=== PATIENT | female | born 1985 | race Caucasian/White ===

== ENCOUNTER 2024-02-22 10:46 | Outpatient (CLI) | payer BC, SELFPAY | END 2024-02-22 10:47 | disposition home or self-care (01) | PROVIDERS: PCP Physician Assistant Medical; Visit Provider Physician Assistant Medical | DX: Z13.220 Encounter for screening for lipoid disorders (principal); Z13.228 Encounter for screening for other metabolic disorders; Z13.29 Encounter for screening for other suspected endocrine disorder; Z11.59 Encounter for screening for other viral diseases | CPT/HCPCS: 80053; 80061; 84443; 86703; 86803 ==

== ENCOUNTER 2024-11-22 10:05 | Outpatient (CLI) | payer BC, SELFPAY | END 2024-11-22 10:06 | disposition home or self-care (01) | PROVIDERS: PCP Physician Assistant Medical; Visit Provider Physician Assistant Medical | DX: Z90.3 Acquired absence of stomach [part of] (principal) | CPT/HCPCS: 80053; 82306; 82607; 82728; 82746; 84439; 84443; 86376 ==

== ENCOUNTER 2025-01-27 06:12 | Inpatient (IN) | payer BC, OTHER, SELFPAY ==
[2025-01-27] VITALS (17 sets, daily range): BP systolic 107–147; BP diastolic 64–99; PULSE 61–83; RESP 16–18; TEMP 36.7–36.9; O2SAT 90–100; BMI 32.2; BMI 32.1
--- NOTE | 2025-01-27 06:55 | CRLHL7_ITS ---
For Patients: As a result of the Century Cures Act, medical imaging exams and procedure reports are released immediately into your electronic medical record. You may view this report before your referring provider. If you have questions, please contact your health care provider. INDICATION: Right upper quadrant abdomen pain. TECHNIQUE: Ultrasound abdomen limited. Sonographic images of the right upper quadrant were obtained using estrada-scale and color Doppler images. COMPARISON: None. FINDINGS: Liver: Normal in size and echotexture. No suspicious masses. No intrahepatic biliary dilatation. Hepatopetal flow of main portal vein with maintained respiratory phasic variation.. Gallbladder: Cholelithiasis. Mild pericholecystic fluid and borderline edematous wall thickening of the gallbladder measuring 4 mm. CBD measures 4 millimeter. Positive Leblanc`s sign. Pancreas: Partially imaged secondary to bowel gas. Included pancreatic head and body show normal echotexture without ductal dilatation. Vasculature: Patent IVC. Included proximal abdominal aorta is of normal caliber. Right kidney measures 10.5 x 45.4 cm. No hydronephrosis. IMPRESSION: Cholelithiasis with findings concerning for acute cholecystitis. Dictated by Sean Cardenas MD @ 01/27/2025 9:01:27 AM (Electronically Signed)
--- NOTE | 2025-01-27 07:00 | ED_ITS ---
HPI - General Adult General Chief complaint: Chest Pain Stated complaint: abdominal pain Time Seen by Provider: 01/27/25 06:16 Source: patient Mode of arrival: ambulatory Limitations: no limitations History of Present Illness HPI narrative: Friendly 39-year-old female presents to the emergency department with right upper quadrant pain that sleep has been going on intermittently for the past 3 months but became severe for the past day and a half. Initially would have intermittent symptoms typically triggered postprandially that would be accompanied by nausea and vomiting and right upper quadrant pain would be self limited, lasting no more than a couple of hours and never company by fever or radiation. Unfortunately for the past 36 hours she has had persistent achy pain that becomes sharp intermittently in the right upper quadrant area that radiates into the right posterior shoulder blade area. No shortness of breath. Pain is located underneath the right rib margin. Patient has had weight loss since a gastric sleeve surgery in June of this year. Drinks 2-3 alcoholic beverages per week on average, but has not had any this week. No history of pancreatitis. No history of DVT or PE. Not anticoagulated. No fever. No bloody stools. Bowels are moving normally. Has been unable to hold down any food for the past 24 hours due to nausea and is now fairly tolerant of even a couple of sips of liquid. No dysuria. Past medical history notable for history of anxiety. Home meds are bupropion, Lexapro. She has an IUD for contraception. Prior abdominal surgical history includes a almost 4 years ago, gastric sleeve surgery in June. Allergy to hydrocodone. ROS is notable for the GI and musculoskeletal symptoms as above, otherwise denies times 12 systems. Related Data Home Medications ?Medication ?Instructions ?Recorded ?Confirmed fluticasone propionate 50 1 spray intranasal QDAY PRN 02/22/24 01/27/25 mcg/actuation nasal spray,suspension (Flonase Allergy Relief) escitalopram oxalate 10 mg tablet 10 mg PO QDAY 01/27/25 valacyclovir 500 mg tablet 500 mg PO BID PRN 01/27/25 01/27/25 (Valtrex) Previous Rx's ?Medication ?Instructions ?Recorded cetirizine 10 mg capsule (All Day 10 mg PO QDAY PRN al lergy symptoms 02/22/24 Allergy (cetirizine)) #90 caps bupropion HCl 100 mg tablet,12 hr 100 mg PO QAM #90 ta bs 11/22/24 sustained-release (Wellbutrin SR) oxycodone-acetaminophen 5 mg-325 1 tab PO Q6H PRN pain #25 tabs 01/28/25 mg tablet Allergies Allergy/AdvReac Type Severity Reaction Status Date / Time hydrocodone Allergy Intermediate Itching Verified 01/24/25 09:03 PFSH PFSH Medical History (Updated 01/28/25 @ 15:16 by Keren Howard MD) IUD (intrauterine device) in place ?Z97.5 - Presence of (intrauterine) contraceptive device (ICD-10) Low libido ?R68.82 - Decreased libido (ICD-10) Unspecified asthma ?J45.909 - Unspecified asthma, uncomplicated (ICD-10) Hypertension during ?O16.9 - Unspecified maternal hypertension, unspecified trimester (ICD-10) Surgical History (Updated 01/27/25 @ 16:10 by Keren Howard MD) H/O gastric sleeve (~06/2024) ?Z90.3 - Acquired absence of stomach [part of] (ICD-10) Hx of tonsillectomy ?Z90.89 - Acquired absence of other organs (ICD-10) Hx of dilation and curettage ?Z98.890 - Other specified postprocedural states (ICD-10) Hx of section ?Z98.891 - History of uterine scar from previous surgery (ICD-10) Family History (Updated 01/28/25 @ 11:38 by Lucy Adler MD) Mother High blood pressure High cholesterol Thyroid disease Father Depression High blood pressure High cholesterol Maternal Grandfather Diabetes Cardiovascular disease Colon cancer Paternal Grandmother Lung cancer Paternal Grandfather Cancer COPD (chronic obstructive pulmonary disease) Son Seizure disorder Social History (Updated 01/28/25 @ 11:38 by Lucy Adler MD) Narrative: ( Mateusz). ( 13 yo - [place], 10yo- [place], 6yo- [place] ( fostering to adopt), 3 yo- [place]) She does not work outside the home currently. Alcohol- 2-3 drinks per week Never smoker Activity- walks 2-3 times per week. What is your current living situation?: I presently have a place to live Problems where you live: no known problems In the past 12 months, utilities in danger of being shut off: no In past 12 months, lack of transportation kept you from medical appts, meetings, work, or getting things needed for daily living: no In the past 12 mos, have been you worried that your food would run out before you had money to buy more?: never true In the past 12 mos, the food you bought just didn't last and you didn't have money to buy more?: never true Smoking Status: Never smoker Do you use any of these nicotine containing products: None Second hand tobacco smoke exposure: No How many standard drinks containing alcohol do you have on a typical day: 1 or 2 AUDIT-C Alcohol total score: 0 Non-prescribed substance use: denies use How often does anyone, including family, friends and others, physically hurt you : never How often does anyone, including family, friends and others, insult or talk down to you: never How often does anyone, including family, friends and others, threaten you with harm: never How often does anyone, including family, friends and others, scream or curse at you: never service: No Exam Const: Vital Signs, click to edit/add: Vital Signs - 24 hr 01/27/25 06:23 01/27/25 07:30 Temperature 98.4 F Pulse Rate 74 Pulse Rate [Right Pulse Oximeter] 83 Respiratory Rate 16 16 Blood Pressure [Ri ght Upper Arm] 147/99 H Pulse Oximetry 100 100 Oxygen Delivery Me thod Room Air Documenting provider has reviewed patient's vital signs: yes Common normals: no apparent distress and alert General appearance: cooperative and well kempt Other: Appears uncomfortable but stoic and quite funny. HENMT: Common normals: moist oral mucous membranes and oropharynx normal Head and scalp: normal to inspection Face and sinus: normal facial exam Mouth: oral and palatal mucosa normal Eye: Common normals: conjunctivae normal General eye: normal appearance of both eyes Conjunctiva: conjunctiva(e) normal Neck & C-Spine: Common normals: full ROM and no lymphadenopathy General: normal visual inspection Resp: Common normals: normal respiratory effort, no use of accessory muscles and clear to auscultation bilaterally Effort & inspection: able to speak in complete sentences Auscultation: clear to auscultation bilaterally Cardio: Common normals: regular rate, regular rhythm, S1 normal heart sound, S2 normal heart sound and no murmurs Rate: regular rate Rhythm: regular rhythm Heart sounds: S1 normal and S2 normal GI: Common normals: Normal to inspection, nondistended, normoactive bowel sounds present, soft to palpation and no hepatosplenomegaly Palpation: soft and no hepatosplenomegaly Other: Positive Leblanc sign with right upper quadrant tenderness. No guarding or rebound tenderness. Back & Pelvis: Common normals: thoracic and lumbar spine normal to inspection Extremity: Common normals: normal to inspection and no pedal edema Neuro: Common normals: moves all extremities Sensorium/orientation: alert Speech: speech normal Psych: Appearance: well kempt Attitude: engaged Activity/motor behavior: appropriate eye contact Insight: insight good Judgement: judgment good Skin: Common normals: no rashes or lesions noted General skin exam: no rashes or lesions noted Course Course ED Course: 39-year-old female with recurrent episodes of right upper quadrant abdominal pain now with constant abdominal pain for the past day and half with nausea, food intolerance and now radiation to the right shoulder suggestive of diaphragmatic irritation. Differential diagnosis size for acute cholecystitis but also suspicious for choledocholithiasis, biliary dyskinesia, colitis, gastritis, complications from her gastric sleeve surgery, atypical pneumonia, musculoskeletal etiology, amongst others. Will place peripheral IV, obtain typical intra-abdominal and cardiac labs, EKG. Give 4 of Zofran, half of Dilaudid and 1 L of LR. Good to move straight to a right upper quadrant ultrasound rather than a CT due to the positive Leblanc sign on exam but if this does not reveal expected findings, consider CT next. She does have an IUD so I will obtain a serum HCG just to confirm no . Reevaluation(s) Time of Reevaluation #1: 08:57 Reevaluation #1: As suspected, ultrasound did show cholecystic fluid, gallbladder wall thickening and stones. I did speak with Dr. Acosta and let her know this and we were anticipating going to surgery but are lipase came back elevated unexpectedly. With this information, she will need to be admitted to the medical floor for management of the pancreatitis. Will plan to repeat the lipase levels and if going down, she could still have cholecystectomy tomorrow. Dr. Acosta and Dr. Howard to sort out the decision on whether or not she should do antibiotics. Will need MRCP in the morning. This will these in decision making for proceeding with surgery versus transfer for ERCP. Management of pancreatitis in the interim. Discussed with patient. P.r.n. Dilaudid ordered, clear liquid diet, maintenance fluids. Will admit to medical floor for inpatient management Vital Signs Vital signs: Initial Vital Signs Respiratory Effort Normal, Spontaneous, Non-Labored 01/27/25 06:16 Respiratory Depth Normal 01/27/25 06:16 Respiratory Pattern Normal 01/27/25 06:16 Vital Signs Temperature 98.4 F 01/27/25 06:23 Pulse Rate 83 01/27/25 06:23 Respiratory Rate 16 01/27/25 06:23 Blood Pressure 147/99 H 01/27/25 06:23 Pulse Oximetry 100 01/27/25 06:23 Oxygen Delivery Method Room Air 01/27/25 06:23 Temperature 99.2 F 01/28/25 17:00 Pulse Rate 81 01/28/25 17:00 Respiratory Rate 14 01/28/25 17:00 Blood Pressure 113/82 01/28/25 17:00 Pulse Oximetry 99 01/28/25 17:00 Oxygen Delivery Method Room Air 01/28/25 17:00 Medications Administered Medications: Discontinued Medications Generic Name Dose Route Start Last Admin Trade Name Freq PRN Reason Stop Dose Admin Acetaminophen 1,000 mg 01/27/25 12:19 01/28/25 10:05 Acetaminophen 500 Mg Tablet PO 1,000 mg Q6H PRN Administration Bupivacaine HCl 30 ml 01/28/25 13:32 01/28/25 12:15 Bupivacaine 0.25% 30 Ml INJECTION 01/28/25 13:33 15 ml ONCE ONE Administration Cefazolin Sodium 0 gm 01/28/25 11:09 01/28/25 11:44 Cefazolin 1 Gm Inj IVP 01/28/25 11:10 1 gm ONCE ONE Administration Enoxaparin Sodium 40 mg 01/27/25 21:00 01/27/25 20:38 Enoxaparin 40 Mg/0.4 Ml Inj SUBCUT 40 mg HS ANA MARIA Administration Hydromorphone HCl 0.5 mg 01/27/25 06:55 01/27/25 07:26 Hydromorphone 0.5 Mg/0.5 Ml Inj IVP 01/27/25 06:56 0.5 mg ONCE ONE Administration Hydromorphone HCl 0.5 mg 01/27/25 08:03 01/27/25 15:26 Hydromorphone 0.5 Mg/0.5 Ml Inj IVP 0.5 mg Q1H PRN Administration Hydromorphone HCl 0.5 mg 01/28/25 13:05 01/28/25 13:55 Hydromorphone 0.5 Mg/0.5 Ml Inj IVP 0.5 mg Q10M PRN Administration Pain Hydroxyzine Pamoate 25 mg 01/27/25 11:20 01/28/25 08:31 Hydroxyzine Pamoate 25 Mg Capsule PO 25 mg Q4H PRN Administration Hydroxyzine Pamoate 25 mg 01/28/25 13:05 01/28/25 16:08 Hydroxyzine Pamoate 25 Mg Capsule PO 01/28/25 13:06 Not Given ONCE ONE Lactated Ringer's 1,000 mls @ 1,000 mls/hr 01/27/25 06:55 01/27/25 08:33 Lactated Ringers 1000 Ml IV 01/27/25 07:54 Infused .Q1H ONE Infusion Lactated Ringer's 1,000 mls @ 125 mls/hr 01/27/25 08:05 01/28/25 16:09 Lactated Ringers 1000 Ml IV Infused .Q8H ANA MARIA Infusion Lactated Ringer's 1,000 mls @ 125 mls/hr 01/28/25 14:34 01/28/25 14:37 Lactated Ringers 1000 Ml IV 125 mls/hr .Q8H ANA MARIA Administration Iopamidol 50 ml 01/28/25 13:32 01/28/25 12:40 Iopamidol 50 Ml Vial INJECTION 01/28/25 13:33 50 ml ONCE ONE Administration Melatonin 6 mg 01/27/25 11:20 01/27/25 20:39 Melatonin 3 Mg Tablet PO 6 mg HS PRN Administration Ondansetron HCl 4 mg 01/27/25 06:55 01/27/25 07:26 Ondansetron 2 Mg/Ml Inj IVP 01/27/25 06:56 4 mg ONCE ONE Administration Ondansetron HCl 4 mg 01/27/25 08:03 01/28/25 08:42 Ondansetron 2 Mg/Ml Inj IVP 4 mg Q4H PRN Administration Nausea Ondansetron HCl 4 mg 01/28/25 13:05 01/28/25 13:35 Ondansetron 2 Mg/Ml Inj IVP 4 mg ONCE PRN Administration Nausea Oxycodone HCl 5 mg 01/27/25 16:12 01/28/25 18:23 Oxycodone 5 Mg Tablet PO 5 mg Q4H PRN Administration Pain Pantoprazole Sodium 40 mg 01/27/25 11:20 01/27/25 12:36 Pantoprazole Sodium 40 Mg Inj IVP 01/27/25 11:21 40 mg ONCE ONE Administration Prochlorperazine 5 mg 01/28/25 13:05 01/28/25 13:58 Prochlorperazine 5 Mg/Ml Vial IVP 01/28/25 13:06 5 mg ONCE ONE Administration Sodium Chloride 5 ml 01/27/25 21:00 01/28/25 08:43 Sodium Chloride 0.9 % (Flush) 10 Ml Syringe IVF 5 ml BID ANA MARIA Administration Sodium Chloride 20 ml 01/28/25 13:32 01/28/25 12:40 0.9 % Sodium Chl 20 Ml Vial INJECTION 01/28/25 13:33 20 ml ONCE ONE Administration Sodium Chloride 50 ml 01/28/25 13:32 01/28/25 12:40 0.9% Sodium Chl 50 Ml Vial INJECTION 01/28/25 13:33 50 ml ONCE ONE Administration Medical Decision Making Lab Data Lab results reviewed: Yes I reviewed the patient's lab results Lab results narrative: No significant leukocytosis. Lipase is unexpectedly elevated, test is negative. Urinalysis reassuring. Troponin and cardiac workup reassuring. Labs: Lab Results 01/27/25 Range/Units 07:15 WBC 5.12 (4.50-11.00) K/uL RBC 4.29 (4.00-5.20) m/uL Hgb 13.6 (12.0-16.0) gm/dL Hct 41.3 (33.0-51.0) % MCV 96 (80-100) fL MCH 32 (26-34) pg MCHC 33 (32-36) gm/dL RDW Coeff of Mireille 12.7 (11.5-15.5) % Plt Count 192 (140-440) K/uL Neut % (Auto) 66.4 (42.0-72.0) % Lymph % (Auto) 22.1 (20-44) % [place] % (Auto) 9.0 (0.0-11.0) % Eos % (Auto) 2.1 (0.0-7.0) % Baso % (Auto) 0.4 (0.0-3.0) % Neut # (Auto) 3.40 (1.7-7.0) K/uL Lymph # (Auto) 1.13 (0.90-2.90) K/uL [place] # (Auto) 0.50 (0.00-0.90) K/UL Eos # (Auto) 0.11 (0.00-0.50) K/uL Baso # (Auto) 0.02 (0.00-0.30) K/uL Abs Immat Gran (auto) 0.00 (0.00-0.30) K/uL Imm/Tot Granulo (auto) 0.0 % Sodium 138 (135-149) mmol/L Potassium 4.0 (3.6-5.1) mmol/L Chloride 104 (96-114) mmol/L Carbon Dioxide 29 (20-32) mmol/L Anion Gap 5 L (7-15) mEq/L BUN 14 (5-24) mg/dL Creatinine 0.7 (0.5-1.5) mg/dL Estimated Creat Clear 79.04 Estimated GFR 114 ml/min Glucose 99 (60-115) mg/dL Calcium 9.2 (8.4-10.6) mg/dL Total Bilirubin 0.9 (0.1-1.5) mg/dL AST 184 H (12-35) U/L ALT 161 H (4-35) U/L Alkaline Phosphatase 90 (40-150) U/L C-Reactive Protein 1.0 (0.5-1.0) mg/dL Total Protein 7.2 (6.0-8.3) g/dL Albumin 4.1 (3.3-5.0) g/dL Lipase 32970 H (23-300) U/L HCG, Quant < 2.39 mIU/mL POC Troponin I 0.00 L (0.01-0.04) ng/ml Imaging Data Abdominal ultrasound: Attestation: I have reviewed the pertinent imaging results. My impression: Pericholecystic fluid, gallbladder wall thickening, lots of stones. Common bile duct not dilated. Suspicious for acute cholecystitis Radiologist's impression: Tech impression reviewed with same findings. ECG Data Attestation: I personally reviewed and interpreted this ECG as follows: Prior ECG tracings: not available for review Interpretation: Sinus rhythm with a rate of 69. No significant ST or T-wave abnormalities. Normal intervals and axis. Normal EKG Discharge Plan Discharge Clinical Impression: Acute gallstone pancreatitis, Acute calculous cholecystitis Patient Disposition: Admitted As Inpatient Condition: Stable Activity Level: Activity as Tolerated and No strenuous activity Activity Detail: No lifting more than 20 lb for 2 weeks Discharge Diet: Regular
[2025-01-27 07:24] LABS: Hematocrit 41.3 % (33.0-51.0); Hemoglobin* 13.6 gm/dL (12.0-16.0); Immature Granulocytes Abs Auto 0.00 K/uL (0.00-0.30); Immature Granulocytes Pct Auto 0.0 %; Lymphocytes Absolute Auto 1.13 K/uL (0.90-2.90); Mean Corpuscular HGB Conc 33 gm/dL (32-36); Mean Corpuscular Hemoglobin 32 pg (26-34); Mean Corpuscular Volume 96 fL (80-100); RDW Coefficient of Variation % 12.7 % (11.5-15.5); Red Blood Count 4.29 m/uL (4.00-5.20); White Blood Count* 5.12 K/uL (4.50-11.00)
[2025-01-27] MEDS: LACTATED RINGERS 1000 ML 1,000 ML IV (07:26)
[2025-01-27] MEDS: ONDANSETRON 2 MG/ML inj 4 MG IVP ×2 (07:26→10:52)
[2025-01-27 07:39] LABS: Slide Review Reflex No
[2025-01-27 07:41] LABS: Albumin* 4.1 g/dL (3.3-5.0); Troponin, Point-of-Care* 0.00 ng/ml (0.01-0.04)
[2025-01-27 07:42] LABS: Chloride* 104 mmol/L (96-114); Potassium* 4.0 mmol/L (3.6-5.1); Sodium* 138 mmol/L (135-149)
[2025-01-27 07:44] LABS: Alanine Aminotransferase* 161 U/L (4-35); Alkaline Phosphatase* 90 U/L (40-150); Anion Gap 5 mEq/L (7-15); Aspartate Amino Transferase* 184 U/L (12-35); Bilirubin Total* 0.9 mg/dL (0.1-1.5); Blood Urea Nitrogen* 14 mg/dL (5-24); Carbon Dioxide* 29 mmol/L (20-32); Creatinine* 0.7 mg/dL (0.5-1.5); Est. Creatinine Clearance* 79.04; Estimated Glomerular Filt Rate 114 ml/min
[2025-01-27 07:45] LABS: Calcium* 9.2 mg/dL (8.4-10.6); Glucose* 99 mg/dL (60-115); Total Protein* 7.2 g/dL (6.0-8.3)
[2025-01-27 08:06] LABS: HCG Quantitative* < 2.39 mIU/mL
[2025-01-27] MEDS: LACTATED RINGERS 1000 ML 1,000 ML 125 ML IV ×2 (08:33→16:38)
[2025-01-27 08:44] LABS: Appearance Urine Clear (Clear)
[2025-01-27] MEDS: PANTOPRAZOLE SODIUM 40 MG INJ IVP (12:36)
[2025-01-27] MEDS: ACETAMINOPHEN 500 MG TABLET 1000 MG PO (12:37)
--- NOTE | 2025-01-27 12:53 | P.IMHP_ITS ---
Assessment and Plan Assessment and plan (1) Acute gallstone pancreatitis: Problem comment: -analgesics and antiemetics -IV fluids -clear liquid only -trend labs -based on lab findings tomorrow we can consider ERCP or direct to OR for lap cholecystectomy Status: Acute (2) H/O gastric sleeve: Problem comment: [facility] Jun 2024 Status: Acute (3) Obesity: Problem comment: In [id number] 216 lb [id number] sleeve surgery 11/22/2024-170 lb Status: Acute (4) Environmental allergies: Status: Acute (5) Anxiety: Problem comment: 02/22/2024-start Lexapro 10 mg daily 05/16/2024- increase Lexapro to 15 mg daily 11/22/2024-reduce Lexapro to 10 mg daily, add Wellbutrin 100 mg SR daily 02/04 - has weaned herself off all meds Status: Acute Hospitalist- H&P: HPI History of Present Illness Date Seen: 01/27/25 Chief complaint: abdominal pain Narrative: ADMISSION HISTORY AND PHYSICAL - HOSPITALIST Chief Complaint: Acute on chronic abdominal pain; gallstone pancreatitis HPI: This is a 39-year-old, mother of 4, who had a gastric sleeve procedure done approximately 8 months ago. In the last 3 months she started experiencing intermittent sharp abdominal pain in the upper right quadrant. she has lost over 60lbs since surgery. In the last 3 days the pain has been more consistent and chronic. When she woke up this morning she thought the pain was even worse and she felt like she could not eat or work through this pain. She presented to the emergency room. ER COURSE: Her vital signs were all stable. Her right upper quadrant ultrasound showed cholelithiasis with findings consistent with acute cholecystitis. This includes. Cholestatic fluid, wall thickening, common bile duct measuring 4 mm. Her labs showed a normal CBC, normal chemistries, however her AST and ALT were markedly elevated from earlier this summer. However her total bilirubin was normal. Her lipase was 15,159. CODE STATUS: FULL CODE PCP: Balwinder Son PA-C EMERGENCY CONTACT PLAN: , Mateusz mother, Altagracia I've updated the PFSH, medications and allergies in the Expanse tabs. INVESTIGATIONS: LABS/MICRO/ECG/IMAGING as above REVIEW OF SYSTEMS: 12-point ROS completed with patient and negative unless otherwise stated in HPI or below. PHYSICAL EXAM: CONSTITUTIONAL: Conversive, good historian. A/O. Knows setting and context. GENERAL: Well-developed and above ideal body weight, in no respiratory distress. VITAL SIGNS: see record. HEENT: Sclerae are anicteric. No petechiae. CARDIAC: rhythm is regular. There is no S3 or rub. No harsh murmurs. Extremities show trace edema with symmetrical pulses. PULM: good air entry with no wheeze. NEURO: Speech is fluent. A brief neurologic exam is negative. ABDOMEN: soft; tender to the mid epigastrum SKIN: No rashes, petechiae, concerning changes PSYCHIATRIC: Euthymic. ADMIT TO MEDSURG: FLOOR CARE DVT: Lovenox GI: PO intake Time spent: Today I spent 75 minutes seeing the patient, discussing the patient with ER staff, reviewing Expanse and EPIC notes/diagnostics, discussing the care plan with our care time that includes social work, PT/OT, pharmacy, RT, fci and documenting my impressions and plan in the medical record. MEDICAL NECESSITY FOR HOSPITALIZATION Anticipated midnights in the hospital: 2 Admitting diagnosis: gallstone pancreatitis Risk of morbidity and mortality: moderate Acuity is characterized as high and reflected in: recent bariatric surgery; potential for choledocholithiasis or worsening pancreatitis This patient will require hospital services as outlined in the assessment and plan in order to stabilize and be safely discharged to a lower level of care. Because of the risk and acuity as described above, this patient cannot be managed at a lower level of care. LENGTH OF STAY: 2 IP ? Anticipated LOS>2 midnights due to acuity of clinical presentation requiring inpatient level of care Medical Decision Making Medical Decision Making Has patient completed a Health Care Directive: No PFSH PFSH Medical History (Updated 01/27/25 @ 16:10 by Keren Howard MD) IUD (intrauterine device) in place ?Z97.5 - Presence of (intrauterine) contraceptive device (ICD-10) Low libido ?R68.82 - Decreased libido (ICD-10) Unspecified asthma ?J45.909 - Unspecified asthma, uncomplicated (ICD-10) Hypertension during ?O16.9 - Unspecified maternal hypertension, unspecified trimester (ICD-10) Surgical History (Updated 01/27/25 @ 16:10 by Keren Howard MD) H/O gastric sleeve (~06/2024) ?Z90.3 - Acquired absence of stomach [part of] (ICD-10) Hx of tonsillectomy ?Z90.89 - Acquired absence of other organs (ICD-10) Hx of dilation and curettage ?Z98.890 - Other specified postprocedural states (ICD-10) Hx of section ?Z98.891 - History of uterine scar from previous surgery (ICD-10) Family History Mother High blood pressure High cholesterol Thyroid disease Father Depression High blood pressure High cholesterol Maternal Grandfather Diabetes Cardiovascular disease Colon cancer Paternal Grandmother Lung cancer Paternal Grandfather Cancer COPD (chronic obstructive pulmonary disease) Son Seizure disorder Social History Narrative: ( Mateusz). ( 13 yo - AJ, 10yo- Funk, 6yo- Joziah ( fostering to adopt), 3 yo- Von) Work: insurance- finances Alcohol- 2-3 drinks per week Never smoker Activity- walks 2-3 times per week. What is your current living situation?: I presently have a place to live Problems where you live: no known problems In the past 12 months, utilities in danger of being shut off: no In past 12 months, lack of transportation kept you from medical appts, meetings, work, or getting things needed for daily living: no In the past 12 mos, have been you worried that your food would run out before you had money to buy more?: never true In the past 12 mos, the food you bought just didn't last and you didn't have money to buy more?: never true Smoking Status: Never smoker Do you use any of these nicotine containing products: None Second hand tobacco smoke exposure: No How many standard drinks containing alcohol do you have on a typical day: 1 or 2 AUDIT-C Alcohol total score: 0 Non-prescribed substance use: denies use How often does anyone, including family, friends and others, physically hurt you : never How often does anyone, including family, friends and others, insult or talk down to you: never How often does anyone, including family, friends and others, threaten you with harm: never How often does anyone, including family, friends and others, scream or curse at you: never service: No Meds Home Medications and Allergies Home Medications ?Medication ?Instructions ?Recorded ?Confirmed ?Type cetirizine 10 mg capsule (All Day 10 mg PO QDAY PRN al lergy symptoms 02/22/24 01/27/25 Rx Allergy (cetirizine)) #90 caps fluticasone propionate 50 1 spray intranasal QDAY PRN 02/22/24 01/27/25 History mcg/actuation nasal spray,suspension (Flonase Allergy Relief) bupropion HCl 100 mg tablet,12 hr 100 mg PO QAM #90 ta bs 11/22/24 01/27/25 Rx sustained-release (Wellbutrin SR) escitalopram oxalate 10 mg tablet 10 mg PO QDAY 01/27/25 History valacyclovir 500 mg tablet 500 mg PO BID PRN 01/27/25 01/27/25 History (Valtrex) Allergies Allergy/AdvReac Type Severity Reaction Status Date / Time hydrocodone Allergy Intermediate Itching Verified 01/24/25 09:03 Exam Const: Vital Signs, click to edit/add: Vital Signs - 24 hr 01/27/25 06:23 01/27/25 07:30 01/27/25 08:03 Temperature 98.4 F Pulse Rate 74 76 Pulse Rate [Right Pulse Oximeter] 83 Respiratory Rate 16 16 Blood Pressure Blood Pressure [Ri ght Upper Arm] 147/99 H Pulse Oximetry 100 100 [facility] 01/27/25 08:15 01/27/25 08:30 01/27/25 08:34 Temperature Pulse Rate 64 61 62 Pulse Rate [Right Pulse Oximeter] Respiratory Rate Blood Pressure 122/80 Blood Pressure [Ri ght Upper Arm] Pulse Oximetry 99 99 99 Oxygen Delivery Oh thod 01/27/25 08:45 01/27/25 09:01 01/27/25 09:02 Temperature Pulse Rate 75 70 74 Pulse Rate [Right Pulse Oximeter] Respiratory Rate Blood Pressure 118/88 Blood Pressure [Ri ght Upper Arm] Pulse Oximetry 100 98 [facility] 01/27/25 09:15 01/27/25 09:30 01/27/25 09:45 Temperature Pulse Rate 67 66 75 Pulse Rate [Right Pulse Oximeter] Respiratory Rate Blood Pressure Blood Pressure [Ri ght Upper Arm] Pulse Oximetry 99 97 99 Oxygen Delivery Me thod 01/27/25 10:23 Temperature Pulse Rate Pulse Rate [Right Pulse Oximeter] Respiratory Rate 18 Blood Pressure Blood Pressure [Ri ght Upper Arm] Pulse Oximetry 100 Oxygen Delivery Oh thod Room Air Hospitalist - H&P: Result Labs Labs: Short CBC 01/27/25 Range/Units 07:15 WBC 5.12 (4.50-11.00) K/uL Hgb 13.6 (12.0-16.0) gm/dL Hct 41.3 (33.0-51.0) % Plt Count 192 (140-440) K/uL BMP 01/27/25 07:15 Sodium 138 Potassium 4.0 Chloride 104 Carbon Dioxide 29 BUN 14 Creatinine 0.7 Glucose 99 Calcium 9.2 Liver Function 01/27/25 Range/Units 07:15 Total Bilirubin 0.9 (0.1-1.5) mg/dL AST 184 H (12-35) U/L ALT 161 H (4-35) U/L Alkaline Phosphatase 90 (40-150) U/L Albumin 4.1 (3.3-5.0) g/dL Urine 01/27/25 Range/Units Unknown Urine Color Yellow (Yellow) Urine Appearance Clear (Clear) Urine pH 8.5 (5.0-8.5) Ur Specific [place] 1.015 (1.000-1.030) Urine Protein Negative (Negative) Urine Glucose (UA) Negative (Negative)
--- NOTE | 2025-01-27 18:48 | PC.NURSE ---
Pt alert and oriented. VSS. Reported back and abdominal pain, and c/o nausea managed with current medication regimen. pt is on Clear liquid diet, pt tolerates well. IV line placed in left wrist. Pt is independent for ADLs
[2025-01-27] MEDS: ENOXAPARIN 40 MG/0.4 ML INJ SUBCUT (20:38)
[2025-01-27] MEDS: MELATONIN 3 MG TABLET 6 MG PO (20:39)
[2025-01-27] MEDS: SODIUM CHLORIDE 0.9 % (FLUSH) 10 ML SYRINGE 5 ML IVF (20:39)
[2025-01-28] VITALS (22 sets, daily range): BP systolic 109–146; BP diastolic 68–93; PULSE 58–101; RESP 11–21; TEMP 36.5–37.6; O2SAT 93–100
[2025-01-28] MEDS: LACTATED RINGERS 1000 ML 1,000 ML 125 ML IV ×3 (00:23→14:37)
--- NOTE | 2025-01-28 04:20 | PC.NURSE ---
Pt rested well this night. Tolerating Clears. Pain controlled. VS unremarkable. Afebrile. Up IND and voiding. Pleasant and cooperative. No N/V.
[2025-01-28] MEDS: ACETAMINOPHEN 500 MG TABLET 1000 MG PO ×2 (04:52→10:05)
[2025-01-28 06:24] LABS: Hematocrit 36.8 % (33.0-51.0); Hemoglobin* 12.0 gm/dL (12.0-16.0); Immature Granulocytes Pct Auto 0.3 %; Mean Corpuscular HGB Conc 33 gm/dL (32-36); Mean Corpuscular Hemoglobin 32 pg (26-34); Mean Corpuscular Volume 97 fL (80-100); RDW Coefficient of Variation % 12.6 % (11.5-15.5); Red Blood Count 3.78 m/uL (4.00-5.20); White Blood Count* 3.91 K/uL (4.50-11.00)
[2025-01-28 06:35] LABS: Immature Granulocytes Abs Auto 0.00 K/uL (0.00-0.30); Lymphocytes Absolute Auto 1.90 K/uL (0.90-2.90); Slide Review Reflex No
[2025-01-28 06:49] LABS: Albumin* 3.7 g/dL (3.3-5.0); Chloride* 104 mmol/L (96-114); Potassium* 4.0 mmol/L (3.6-5.1); Sodium* 137 mmol/L (135-149)
[2025-01-28 06:51] LABS: Blood Urea Nitrogen* 7 mg/dL (5-24); Creatinine* 0.6 mg/dL (0.5-1.5); Est. Creatinine Clearance* 92.21; Estimated Glomerular Filt Rate 118 ml/min
[2025-01-28 06:52] LABS: Alanine Aminotransferase* 108 U/L (4-35); Alkaline Phosphatase* 80 U/L (40-150); Anion Gap 5 mEq/L (7-15); Aspartate Amino Transferase* 65 U/L (12-35); Bilirubin Direct* 0.2 mg/dL (0.0-0.5); Bilirubin Total* 0.8 mg/dL (0.1-1.5); Carbon Dioxide* 28 mmol/L (20-32); Total Protein* 6.3 g/dL (6.0-8.3)
[2025-01-28 06:53] LABS: Calcium* 9.0 mg/dL (8.4-10.6); Glucose* 88 mg/dL (60-115)
[2025-01-28] MEDS: ONDANSETRON 2 MG/ML inj 4 MG IVP ×2 (08:42→13:35)
[2025-01-28] MEDS: SODIUM CHLORIDE 0.9 % (FLUSH) 10 ML SYRINGE 5 ML IVF (08:43)
--- NOTE | 2025-01-28 11:07 | P.GSCN_ITS ---
History of Present Illness Consult details Date Seen: 01/28/25 Consult date: 01/28/25 Narrative: The patient is a 39-year-old female who presented to the ER yesterday with severe right upper quadrant pain radiating to her back. She states that she developed back pain on Tuesday on the right side. On Tuesday she had nausea and laid in bed most of the day. She tried eating with that made the pain worse. On Tuesday she felt even worse and came in to be evaluated. She states that it was painful for her to stand up. She had nausea and vomiting with this. The pain again started in the front of stomach as a burning-type pain and radiated to her back on the right side. She has not had any change in her bowel habits. No diarrhea. She has had similar symptoms but less severe 3-4 times in the last 3 months. The pain would wake her from sleep and last anywhere from 30-60 minutes. The pain was always on her right abdomen radiating to her back. She had nausea with this pain. This morning she feels slightly better but still has pain on the right side with some nausea. She did undergo sleeve gastrectomy back in June. [facility] Medical History (Updated 01/28/25 @ 11:42 by Lcuy Adler MD) IUD (intrauterine device) in place ?Z97.5 - Presence of (intrauterine) contraceptive device (ICD-10) Low libido ?R68.82 - Decreased libido (ICD-10) Unspecified asthma ?J45.909 - Unspecified asthma, uncomplicated (ICD-10) Hypertension during ?O16.9 - Unspecified maternal hypertension, unspecified trimester (ICD-10) Surgical History (Updated 01/27/25 @ 16:10 by Keren Howard MD) H/O gastric sleeve (~06/2024) ?Z90.3 - Acquired absence of stomach [part of] (ICD-10) Hx of tonsillectomy ?Z90.89 - Acquired absence of other organs (ICD-10) Hx of dilation and curettage ?Z98.890 - Other specified postprocedural states (ICD-10) Hx of section ?Z98.891 - History of uterine scar from previous surgery (ICD-10) Family History Mother High blood pressure High cholesterol Thyroid disease Father Depression High blood pressure High cholesterol Maternal Grandfather Diabetes Cardiovascular disease Colon cancer Paternal Grandmother Lung cancer Paternal Grandfather Cancer COPD (chronic obstructive pulmonary disease) Son Seizure disorder Social History Narrative: ( Mateusz). ( 13 yo - AJ, 10yo- Funk, 6yo- Joziah ( fostering to adopt), 3 yo- Von) She does not work outside the home currently. Alcohol- 2-3 drinks per week Never smoker Activity- walks 2-3 times per week. What is your current living situation?: I presently have a place to live Problems where you live: no known problems In the past 12 months, utilities in danger of being shut off: no In past 12 months, lack of transportation kept you from medical appts, meetings, work, or getting things needed for daily living: no In the past 12 mos, have been you worried that your food would run out before you had money to buy more?: never true In the past 12 mos, the food you bought just didn't last and you didn't have money to buy more?: never true Smoking Status: Never smoker Do you use any of these nicotine containing products: None Second hand tobacco smoke exposure: No How many standard drinks containing alcohol do you have on a typical day: 1 or 2 AUDIT-C Alcohol total score: 0 Non-prescribed substance use: denies use How often does anyone, including family, friends and others, physically hurt you : never How often does anyone, including family, friends and others, insult or talk down to you: never How often does anyone, including family, friends and others, threaten you with harm: never How often does anyone, including family, friends and others, scream or curse at you: never service: No Meds Home Medications and Allergies Home Medications ?Medication ?Instructions ?Recorded ?Confirmed ?Type cetirizine 10 mg capsule (All Day 10 mg PO QDAY PRN al lergy symptoms 02/22/24 01/27/25 Rx Allergy (cetirizine)) #90 caps fluticasone propionate 50 1 spray intranasal QDAY PRN 02/22/24 01/27/25 History mcg/actuation nasal spray,suspension (Flonase Allergy Relief) bupropion HCl 100 mg tablet,12 hr 100 mg PO QAM #90 ta bs 11/22/24 01/27/25 Rx sustained-release (Wellbutrin SR) escitalopram oxalate 10 mg tablet 10 mg PO QDAY 01/27/25 History valacyclovir 500 mg tablet 500 mg PO BID PRN 01/27/25 01/27/25 History (Valtrex) Allergies Allergy/AdvReac Type Severity Reaction Status Date / Time hydrocodone Allergy Intermediate Itching Verified 01/24/25 09:03 Exam Narrative: Exam Narrative: General appearance: Alert, cooperative, and in no distress Eyes: PERRLA, eye lids clear, and sclera white HENT Head: Normocephalic Ears: External ears normal Pulmonary: Breathing nonlabored on room air Cardiovascular Heart: Regular rate Extremities: warm and well perfused Gastrointestinal Abdominal: Scars consistent with surgical history. Patient is tender in epigastric and right upper quadrant. No tenderness on the left or lower abdomen. Musculoskeletal: Extremities: Upper: Both upper extremities have normal joint range of motion and intact strength. Lower: Both lower extremities have normal joint range of motion and intact strength. Skin: Normal skin color, texture, and turgor. Neurologic: No focal deficits Psychiatric: Alert, oriented, cooperative, normal affect. Const: Vital Signs, click to edit/add: Vital Signs - 24 hr 01/27/25 15:00 01/27/25 19:28 01/27/25 22:49 Temperature 98.1 F 98.1 F 98.4 F Pulse Rate [Pulse Oximeter] 79 63 62 Respiratory Rate 18 16 16 Blood Pressure [Ri ght Arm] 107/67 123/69 112/64 Pulse Oximetry 99 100 100 Oxygen Delivery Me thod Room Air Room Air Room Air 01/27/25 22:51 01/28/25 02:48 01/28/25 04:52 Temperature 98.4 F 98.4 F Pulse Rate [Pulse Oximeter] 62 60 Respiratory Rate 16 16 Blood Pressure [Ri ght Arm] 119/72 Pulse Oximetry 100 Oxygen Delivery Me thod Room Air 01/28/25 08:36 01/28/25 08:36 Temperature 98.6 F Pulse Rate [Pulse Oximeter] 62 62 Respiratory Rate 14 14 Blood Pressure [Ri ght Arm] 114/80 Pulse Oximetry 99 Oxygen Delivery Me thod Results Labs Labs: White blood cell count yesterday on admission was 5 - today it is 3.9 Electrolytes within normal limits both yesterday and today Bilirubin was normal yesterday as well as today. Alkaline phosphatase was normal yesterday as well as today AST yesterday 184 today a 65 ALT 161 yesterday, today 108 CRP yesterday 1.0, today 1.4 Lipase yesterday 15,000, today 204 HCG negative Imaging Abdominal ultrasound report/results: report reviewed and image reviewed Additional studies: Ultrasound the abdomen: FINDINGS: Liver: Normal in size and echotexture. No suspicious masses. No intrahepatic biliary dilatation. Hepatopetal flow of main portal vein with maintained respiratory phasic variation.. Gallbladder: Cholelithiasis. Mild pericholecystic fluid and borderline edematous wall thickening of the gallbladder measuring 4 mm. CBD measures 4 millimeter. Positive Leblanc`s sign. Pancreas: Partially imaged secondary to bowel gas. Included pancreatic head and body show normal echotexture without ductal dilatation. Vasculature: Patent IVC. Included proximal abdominal aorta is of normal caliber. Right kidney measures 10.5 x 45.4 cm. No hydronephrosis. IMPRESSION: Cholelithiasis with findings concerning for acute cholecystitis. Dictated by Sean Cardenas MD @ 01/27/2025 9:01:27 AM Progress Note:A&P Assessment and plan (1) Cholecystitis: Status: Acute (2) Acute gallstone pancreatitis: Status: Acute Plan The patient is a 39-year-old female with acute cholecystitis as well as gallstone pancreatitis. Since her lipase has returned to a normal level, I recommended cholecystectomy with intraoperative cholangiogram. We discussed gallbladder anatomy and physiology as well as cholecystectomy risks which include bleeding, infection, bile leak, retained common bile duct stone, conversion to open or injury to other structures, specifically the common bile duct and need for additional procedures. We also discussed recovery. She understands that if a stone is found in the common bile duct then she would need ERCP. She is agreeable to proceed and we will plan on surgery today.
[2025-01-28] MEDS: BUPIVACAINE 0.25% 30 ML INJECTION (12:15)
--- NOTE | 2025-01-28 12:32 | CRLHL7_ITS ---
For Patients: As a result of the Century Cures Act, medical imaging exams and procedure reports are released immediately into your electronic medical record. You may view this report before your referring provider. If you have questions, please contact your health care provider. INDICATION: Intraoperative cholangiogram. TECHNIQUE: Single spot image of the right upper quadrant. 2.86 mGy fluoroscopy dose. FINDINGS: The opacified portions of the intra and extrahepatic biliary tree appear normal. No filling defect or dilation. Dictated by Chuck Tovar MD @ 01/30/2025 8:42:57 AM (Electronically Signed)
[2025-01-28] MEDS: 0.9% SODIUM CHL 50 ML VIAL INJECTION (12:40)
[2025-01-28] MEDS: 0.9 % SODIUM CHL 20 ml vial INJECTION (12:40)
--- NOTE | 2025-01-28 13:08 | P.GSOP_ITS ---
Operative Note Date of procedure: 01/28/25 Pre-op diagnosis: 1. Cholecystitis 2. Gallstone pancreatitis Post-op diagnosis: Same Type of Procedure: 1. Laparoscopic cholecystectomy 2. Intraoperative cholangiogram Indications: The patient is a 39-year-old female who presented to the emergency department with severe right upper quadrant pain radiating to her back. She was found to have a markedly elevated lipase is. She was admitted to the hospital overnight. Repeat lipase the following morning was normal. I recommended cholecystectomy with intraoperative cholangiogram to rule out any remaining choledocholithiasis. After discussion of risks and benefits, she was agreeable to proceed. Procedure Description: After discussing the risks and benefits of the procedure, the patient signed informed consent.? The operative site was marked and the patient was brought to the operating room and placed on the operating table in supine position.? Care was taken to pad the patient's pressure points.?? The patient was then intubated by anesthesia.?? The operative site was then prepped and draped in the usual sterile fashion.? A time-out was then performed. Entrance to the abdomen was 1st attempted via a 5 mm Visiport in the left upper quadrant. I aborted this as the abdomen did not insufflate once I passed through what I felt to be the peritoneum. I then created an incision below the umbilicus and using Luciano technique, cut down through the fascia and entered the peritoneal cavity. A 10 mm port was placed in the abdomen was insufflated. I looked at the port site in the the left upper quadrant. I had not entered the peritoneum. This port was then advanced into peritoneal cavity under direct vision. The patient was then placed in reverse Trendelenburg position with the right side up. I then placed 2 working ports along the right costal margin, all under direct vision. The patient had omental adhesions going to her umbilical incision from her prior surgery. I took these down bluntly to avoid issues with a closure of the umbilical incision at the end of the case. The gallbladder fundus was grasped and retracted cephalad. It was noted to be edematous. A small amount of dissection was needed to free omental adhesions from the gallbladder. The infundibulum was grasped. A combination of hook cautery and blunt dissection was used to carefully dissect out the cystic duct and artery until they could clearly be seen entering the gallbladder without any interv ening structures. The gallbladder was dissected off the cystic plate to achieve the critical view. The cystic artery was clipped with 2 clips proximally and 1 clip on the specimen side and divided. There were 2 small branches going into the gallbladder. Initially I did divide this with cautery, however a clip was placed for hemostasis. Once this was done, I placed a clip across the cystic duct at the gallbladder neck. I created a ductotomy. No bile flowed retrograde. I then carefully palpated the duct. Multiple tiny stones which were impacted in the cystic duct were then removed through the ductotomy. Bile then did flow through the duct retrograde. I then advanced a cholangiocatheter into the end of the cystic duct. This was then clamped. A saline leak test was performed and fluoroscopy was brought into the field after laying the patient flat. Contrast was then injected and there was brisk filling of the common bile duct, duodenum as well as the right and left hepatic ducts. There was no filling defects noted. The cholangiocatheter was then removed. The patient was placed back in reverse Trendelenburg with the right-side up. Two clips were then placed on the distal cystic duct and the duct was divided. The gallbladder was then taken off of the liver bed and removed from the abdomen using an Endo- Catch bag. The gallbladder bed was surveyed for hemostasis which appeared adequate. A small amount of bile which had spilled was suctioned from the abdomen. The remaining ports were then removed and the abdomen desufflated. The umbilical port fascia was closed with 0 Vicryl. The skin was closed with absorbable subcuticular suture. Sterile dressings were then applied. Instrument sponge and needle counts were correct at the end of the case. The patient was then woken and transferred to the PACU in stable condition. ? The patient tolerated the procedure well. Findings: 1. Acute cholecystitis. 2. Multiple stones impacted in the cystic duct 3. Negative cholangiogram Anesthesia: GETA Surgeon: Lucy Adler MD Estimated blood loss (mL): 10 Specimen: Gallbladder Condition: stable Disposition: PACU
--- NOTE | 2025-01-28 13:31 | P.ANES_ITS ---
Anesthesia Charges Start Date/Time Anesthesia Start Date: 01/28/25 Anesthesia Start Time: 11:35 Stop Date/Time Anesthesia Stop Date: 01/28/25 Anesthesia Stop Time: 13:29 Coding CPT Codes CPT Codes: ANESTH SURG UPPER ABDOMEN - 68566 ([id number]) P2 - PATIENT W/MILD SYST DISEASE, QK - BEVERAGE INSPECTION MACHINE TENDER 2-4 CNCRNT ANES PROC, QX - [employer] RADIO OPERATOR SVC W/ MD MED DIRECTION
--- NOTE | 2025-01-28 13:31 | W.ANESCHARGE ---
Anesthesia Charges Start Date/Time Anesthesia Start Date: 01/28/25 Anesthesia Start Time: 11:35 Stop Date/Time Anesthesia Stop Date: 01/28/25 Anesthesia Stop Time: 13:29 Coding CPT Codes CPT Codes: ANESTH SURG UPPER ABDOMEN - 58937 ([id number]) P2 - PATIENT W/MILD SYST DISEASE, QK - COMMERCIAL ELECTRICIAN 2-4 CNCRNT ANES PROC, QX - PHYSICIAN LOCUMS URGENT CARE SVC W/ MD MED DIRECTION
--- NOTE | 2025-01-28 13:33 | P.ANES_ITS ---
Anesthesia Charges Start Date/Time Anesthesia Start Date: 01/28/25 Anesthesia Start Time: 11:35 Stop Date/Time Anesthesia Stop Date: 01/28/25 Anesthesia Stop Time: 13:29 Coding CPT Codes CPT Codes: ANESTH SURG UPPER ABDOMEN - 25328 ([id number]) QK - SUBSCRIPTION CREW LEADER 2-4 CNCRNT ANES PROC, QX - MEAT GRADER SVC W/ MD MED DIRECTION, P2 - PATIENT W/MILD SYST DISEASE
--- NOTE | 2025-01-28 13:33 | W.ANESCHARGE ---
Anesthesia Charges Start Date/Time Anesthesia Start Date: 01/28/25 Anesthesia Start Time: 11:35 Stop Date/Time Anesthesia Stop Date: 01/28/25 Anesthesia Stop Time: 13:29 Coding CPT Codes CPT Codes: ANESTH SURG UPPER ABDOMEN - 05888 ([id number]) QK - FACTORY ASSEMBLER 2-4 CNCRNT ANES PROC, QX - CHUTE WORKER SVC W/ MD MED DIRECTION, P2 - PATIENT W/MILD SYST DISEASE
[2025-01-28] MEDS: PROCHLORPERAZINE 5 MG/ML VIAL IVP (13:58)
--- NOTE | 2025-01-28 14:26 | SUR.PHASEI ---
patient met discharge criteria per anesthesia
--- NOTE | 2025-01-28 15:14 | PM.DS1 ---
DS: Providers Provider Date Seen: 01/28/25 Date of admission: 01/27/25 11:01 Primary care physician: Kiki Son PA-C Admitting Clinician: Keren Howard MD Consults: 01/27/25 11:20 Consult to Wet Primer Powder Blender [CONS] Routine Comment: Reason for Consult:: Social Service Consult Attending Physician on discharge: Keren Howard MD Date of Discharge: 01/28/25 DS: Diagnosis Discharge Diagnosis (1) Acute gallstone pancreatitis: Status: Acute Problem details: -improved -s/p lap joseph -no ERCP or MRCP needed in this case (2) Cholecystitis: Status: Acute Problem details: s/p lap joseph 01/28 lipase had returned to normal and LFTS were downtrending discharged in the evening after surgery. (3) H/O gastric sleeve: Status: Acute Problem details: [facility] Jun 2024 (4) Obesity: Status: Acute Problem details: In [id number] 216 lb [id number] sleeve surgery 11/22/2024-170 lb DS: Summary Hospital Course Hospital Course: QUESTIONS TO ASK AT FOLLOW-UP: 1. Has the abdominal pain incisions? Any more postprandial pain acute had before? Her LFTs and lipase were markedly elevated during this admission. BRIEF HOSPITAL COURSE: Patient was admitted overnight. Synopsis of acute inpatient issues are outlined above. Chronic medical conditions with notable findings outlined above. Her lipase had returned to normal the day after admission. She had an uneventful laparoscopic cholecystectomy and intraoperative cholangiogram. She was able to discharge the evening of surgery DISCHARGE MEDICATIONS: See Reconciled list - SIGNIFICANT CHANGES: no changes to chronic medications Specific instructions to the patient and follow-up are outlined below. REVIEW OF SYSTEMS No new chest pain or dyspnea Pain controlled No voiding difficulties Tolerating diet challenge PHYSICAL EXAM: CONSTITUTIONAL: Conversive, good historian. A/O. Knows setting and context. GENERAL: Well-developed and above ideal body weight, in no respiratory distress. VITAL SIGNS: see record. HEENT: Sclerae are anicteric. No petechiae. CARDIAC: rhythm is regular. There is no S3 or rub. No harsh murmurs. Extremities show trace edema with symmetrical pulses. PULM: good air entry with no wheeze. NEURO: Speech is fluent. A brief neurologic exam is negative. abdomen: appropriately tender mid epigastrum SKIN: No rashes, petechiae, concerning changes PSYCHIATRIC: Euthymic. DISPOSITION: home with . Time spent on discharge 37 minutes. Status at Discharge Functional status at discharge: independent ambulation Overall status at discharge: patient is progressing back to baseline Time Spent with Patient Time attestation: Total time spent providing and/or coordinating discharge services: Time spent: Greater than 30 minutes Exam Const: Vital Signs, click to edit/add: Vital Signs - 24 hr 01/27/25 19:28 01/27/25 22:49 01/27/25 22:51 Temperature 98.1 F 98.4 F Pulse Rate Pulse Rate [Pulse Oximeter] 63 62 62 Respiratory Rate 16 16 16 Blood Pressure Blood Pressure [Ri ght Arm] 123/69 112/64 Pulse Oximetry 100 100 Oxygen Delivery Me thod Room Air Room Air 01/28/25 02:48 01/28/25 04:52 01/28/25 08:36 Temperature 98.4 F 98.4 F 98.6 F Pulse Rate Pulse Rate [Pulse Oximeter] 60 62 Respiratory Rate 16 14 Blood Pressure Blood Pressure [Ri ght Arm] 119/72 114/80 Pulse Oximetry 100 99 Oxygen Delivery Me thod Room Air 01/28/25 08:36 01/28/25 11:18 01/28/25 13:24 Temperature 98.8 F 98.2 F Pulse Rate 101 H Pulse Rate [Pulse Oximeter] 62 67 Respiratory Rate 14 14 12 Blood Pressure 143/82 H Blood Pressure [Ri ght Arm] 124/72 Pulse Oximetry 99 99 Oxygen Delivery Me thod Room Air Room Air 01/28/25 13:30 01/28/25 13:35 01/28/25 13:40 Temperature 98.2 F 98.2 F 98.2 F Pulse Rate 91 82 91 Pulse Rate [Pulse Oximeter] Respiratory Rate 11 L 16 16 Blood Pressure 130/85 135/81 132/87 Blood Pressure [Ri ght Arm] Pulse Oximetry 99 99 99 Oxygen Delivery Me thod Room Air Room Air Room Air 01/28/25 13:45 01/28/25 13:50 01/28/25 13:55 Temperature 98.2 F 98.2 F 98.2 F Pulse Rate 86 81 78 Pulse Rate [Pulse Oximeter] Respiratory Rate 20 21 14 Blood Pressure 139/84 146/93 H 136/87 Blood Pressure [Ri ght Arm] Pulse Oximetry 99 98 98 Oxygen Delivery Me thod Room Air Room Air Room Air 01/28/25 14:00 01/28/25 14:05 01/28/25 14:10 Temperature 98.2 F 98.2 F 98.2 F Pulse Rate 77 64 58 L Pulse Rate [Pulse Oximeter] Respiratory Rate 14 18 18 Blood Pressure 128/85 128/88 127/75 Blood Pressure [Ri ght Arm] Pulse Oximetry 96 97 96 Oxygen Delivery Me thod Room Air Room Air Room Air 01/28/25 14:15 01/28/25 14:24 01/28/25 14:30 Temperature 97.7 F 98.9 F 99.2 F Pulse Rate 66 Pulse Rate [Pulse Oximeter] 67 63 Respiratory Rate 13 14 14 Blood Pressure 121/78 Blood Pressure [Ri ght Arm] 119/81 119/75 Pulse Oximetry 93 95 95 Oxygen Delivery Me thod Room Air Room Air Room Air 01/28/25 14:45 01/28/25 15:00 Temperature 99 F 99 F Pulse Rate Pulse Rate [Pulse Oximeter] 66 59 L Respiratory Rate 14 16 Blood Pressure Blood Pressure [Ri ght Arm] 115/81 117/71 Pulse Oximetry 99 99 Oxygen Delivery Me thod Room Air Room Air DS: Data Data Completed and Pending Labs on day of discharge: Labs from last 24 hours 01/28/25 06:10 WBC 3.91 L RBC 3.78 L Hgb 12.0 Hct 36.8 MCV 97 MCH 32 MCHC 33 RDW Coeff of Mireille 12.6 Plt Count 170 Neut % (Auto) 39.9 L Lymph % (Auto) 48.3 H Sunflower % (Auto) 6.9 Eos % (Auto) 4.1 Baso % (Auto) 0.5 Neut # (Auto) 1.60 L Lymph # (Auto) 1.90 Sunflower # (Auto) 0.30 Eos # (Auto) 0.20 Baso # (Auto) 0.00 Abs Immat Gran (auto) 0.00 Imm/Tot Granulo (auto) 0.3 Sodium 137 Potassium 4.0 Chloride 104 Carbon Dioxide 28 Anion Gap 5 L BUN 7 Creatinine 0.6 Estimated Creat Clear 92.21 Estimated GFR 118 Glucose 88 Calcium 9.0 Phosphorus 3.7 Total Bilirubin 0.8 Direct Bilirubin 0.2 AST 65 H ALT 108 H Alkaline Phosphatase 80 C-Reactive Protein 1.4 H Total Protein 6.3 Albumin 3.7 Lipase 204 Preliminary micro results at discharge 01/27/25 Unknown Urine Culture - Preliminary Urine,Clean Catch NO GROWTH AFTER 24 HOURS Discharge Plan Discharge Disposition: Home, Self-Care Date of Admission: 01/27/25 11:01 Consulting Providers: Lucy Adler Primary Care Provider: Kiki Son Condition: Stable Anticipated Discharge Date/Time: 01/28/25 13:22 Discharge Medications: New oxycodone-acetaminophen 5-325 mg tablet 1 tab PO Q6H PRN (Reason: pain) Qty: 14 0RF Continued bupropion HCl [Wellbutrin SR] 100 mg tablet sustained-release 12 hr 100 mg PO QAM Qty: 90 0RF fluticasone propionate [Flonase Allergy Relief] 50 mcg/actuation spray,suspension 1 spray intranasal QDAY PRN Rx Instructions: administer into each nostril All Day Allergy (cetirizine) 10 mg capsule 10 mg PO QDAY PRN (Reason: allergy symptoms) Qty: 90 3RF valacyclovir [Valtrex] 500 mg tablet 500 mg PO BID PRN Rx Instructions: 1 tablet twice daily x5 days as needed for outbreaks Quantity= 3 outbreaks escitalopram oxalate 10 mg tablet 10 mg PO QDAY Discharge Orders: Discharge Order (Routine); Ordered 01/28/25 Ordered By: Lucy Adler Patient Education: Hydrocodone/Acetaminophen (By mouth), General Anesthesia (DC), Laparoscopic Cholecystectomy (DC), NH+C Post-Operative Instructions: Laparoscopic Cholecystectomy Additional Instructions: Wound care: Your sutures are under the skin and will dissolve over time. Leave steri strips (white bandages) over incisions until they fall off (or remove after 7 days). OK to shower tomorrow but avoid bathing, soaking or swimming for 2 weeks. Pat the incisions dry. No need to wash or scrub the area. Apply ice to the area as needed for swelling. It is also OK to use a heating pad if this provides more comfort to you. Pain control: You were prescribed a pain medication. This medication contains acetaminophen (Tylenol). If you are taking your prescribed pain pills 4 times daily, do not take additional acetaminophen. As your pain improves, you can try taking acetaminophen instead of the prescribed pain pill. It is ok to take Ibuprofen or Naproxen (per directions on packaging). This medication helps with inflammation and swelling. Take an [id number] stool softener while you are taking prescribed pain medications to help alleviate constipation. I recommend Senna and/or Colace. Take as directed on package. If you have not had a bowel movement in 3 days, try taking Miralax as directed on the package. All of these are available over the counter. Follow-up Follow up with Dr. Adler in 2-3 weeks Please call if you are experiencing severe pain, nausea, vomiting, difficulty urinating, fever or have not had bowel movement in 4 days after surgery. Activity Level: Activity as Tolerated and No strenuous activity Activity Detail: No lifting more than 20 lb for 2 weeks Discharge Diet: Regular Follow Up Appointments: Kiki Son PA-C [Primary Care Provider, Family Practice] Lucy Adler MD [Staff Physician, General Surgery] - 02/12/25 9:15 am [facility] Forms: Patient Belongings, [facility] Info Instructions
--- NOTE | 2025-01-28 18:37 | PC.NURSE ---
Discharge: Patient pleasant and cooperative. Patient vitally stable, lungs clear, BS WNL, IV removed, catheter intact. Patient's abdominal lap sites x4 C/D/I with scan old bloody drainage. Active ice used on abdomen. Patient rated abdominal pain 3/10 after surgery, 5mg given once after surgery. Patient denies nausea, and urinating well. Patient with small appetite but tolerated regular diet for dinner. Patient signed belongings sheet and discharge form, all questions regarding education were answered. Patient left the floor by foot with to home at 1835.
== END 2025-01-28 18:35 | disposition home or self-care (01) | DRG 263 ==
LOC: ED 08:59 → MEDSURG 10:00
PROVIDERS: Surgery; Admitting Provider Family Medicine; Emergency Provider Family Medicine; PCP Physician Assistant Medical; Visit Provider Family Medicine
PROC: 0FT44ZZ Resection of Gallbladder, Percutaneous Endoscopic Approach (ICD-10-PCS; CPT 47563; principal; 2025-01-28 11:30)
DX: K85.10 Biliary acute pancreatitis without necrosis or infection (principal); K80.01 Calculus of gallbladder with acute cholecystitis with obstruction; Z98.84 Bariatric surgery status; Z90.3 Acquired absence of stomach [part of]; E66.9 Obesity, unspecified; Z68.32 Body mass index [BMI] 32.0-32.9, adult; J45.909 Unspecified asthma, uncomplicated; F41.9 Anxiety disorder, unspecified
CPT/HCPCS: 00790; 36415; 74300; 76000; 76705; 80053; 80069; 80076; 81001; 81003; 83690; 84484; 84702; 85025; 86140; 87086; 88304; 93005; 99284; 99285; A9270; J0330; J0665; J0690; J0780; J1100; J1171; J1650; J1885; J2250; J2405; J2470; J2710; J3010; J3490; J7120; Q9967

== ENCOUNTER 2025-02-12 09:29 | Outpatient (CLI) | payer BC, OTHER, SELFPAY | END 2025-02-12 09:30 | disposition home or self-care (01) | PROVIDERS: PCP Physician Assistant Medical; Visit Provider Surgery | DX: R74.01 Elevation of levels of liver transaminase levels (principal); Z90.49 Acquired absence of other specified parts of digestive tract | CPT/HCPCS: 80076; 83690 ==

== ENCOUNTER 2025-04-08 08:37 | Outpatient (CLI) | payer BC, SELFPAY ==
--- NOTE | 2025-04-08 08:45 | CRLHL7_ITS ---
For Patients: As a result of the Century Cures Act, medical imaging exams and procedure reports are released immediately into your electronic medical record. You may view this report before your referring provider. If you have questions, please contact your health care provider. INDICATION: BILATERAL SCREENING MAMMOGRAM, ASYMPTOMATIC 39 Y/O FEMALE COMPARISON: BASELINE TECHNIQUE: Digital mammogram in CC and MLO projections including computer-aided detection (CAD) and tomosynthesis. BREAST COMPOSITION: The breasts are heterogeneously dense, which may obscure small masses. FINDINGS: No suspicious findings. ASSESSMENT: BI-RADS 1 Negative RECOMMENDATION: Annual screening mammogram. A lay language report of this examination will be provided to the patient. Dictated by: Volodymyr Mendoza MD @ 04/08/2025 09:15:31 (Electronically Signed)
== END 2025-04-08 08:38 | disposition home or self-care (01) ==
LOC: MAMMO 08:37
PROVIDERS: PCP Physician Assistant Medical; Visit Provider Physician Assistant Medical
DX: Z12.31 Encounter for screening mammogram for malignant neoplasm of breast (principal); R92.333 Mammographic heterogeneous density, bilateral breasts
CPT/HCPCS: 77063; 77067